=== PATIENT | male | born 1960 | race Hispanic/Latino ===

== ENCOUNTER 2019-08-26 12:02 | Emergency (ER) | payer SELFPAY ==
[2019-08-26] MEDS ORDERED: Morphine 4 MG/ML VIAL ONE (13:36)
[2019-08-26] MEDS ORDERED: Adacel (T-DAP) 0.5 ML SYRINGE ONE (13:36)
[2019-08-26] MEDS ORDERED: Morphine 2 MG/ML SYRINGE ONE (13:59)
--- NOTE | 2019-08-26 14:09 | CT ---
EXAM: CT facial bones PROVIDED CLINICAL HISTORY: Fall at work hitting face on ground COMPARISON: None FINDINGS: Bones: Nasal bones: There is a minimally depressed right-sided nasal bone fracture. Maxilla: Intact. Mandible: Intact. Zygomatic arches: Intact. Pterygoid plates: Intact. Orbital rims: Intact. Orbital wall and floor: Intact. Frontal skull: Intact. Paranasal sinuses: Intact. Orbits: Intact. Visualized intracranial contents: Intact. Cervical spine: Moderate degenerative change of the cervical spine. Soft tissues: Intact. IMPRESSION: Minimally depressed right-sided nasal bone fracture.
== END 2019-08-26 14:43 | disposition home or self-care (01) ==
LOC: ERS 12:02
DX: S01.511A Laceration without foreign body of lip, initial encounter (principal); W01.198A Fall on same level from slipping, tripping and stumbling with subsequent striking against other object, initial encounter
CPT/HCPCS: 70486; 90471; 90715; 96372; J2270